=== PATIENT | female | born 1960 | race Caucasian/White ===

== ENCOUNTER 2018-07-28 01:44 | Inpatient (IN) | payer MEDICAID ==
[~2018-07-28] VITALS: Ht 165.1 cm; Wt 70.3 kg
[2018-07-28] MEDS ORDERED: LACTULOSE 20G/30ML UDC PO ONE (02:00)
[2018-07-28 02:34] LABS: BASOPHILS % 0.4 % (0.0-2.0); EOSINOPHILS % 2.7 % (0.0-5.0); HEMATOCRIT. 21.2 % (36.0-48.0); LYMPHOCYTES % 12.8 % (20.0-50.0); MEAN CORPUSCULAR HEMOGLOBIN 28.8 pg (28.0-32.0); MEAN CORPUSCULAR VOLUME 89.2 fL (81.0-99.0); MEAN PLATELET VOLUME 9.9 fl (7.4-10.4); MONOCYTES % 12.5 % (2.0-8.0); NEUTROPHILS % 71.6 % (40.0-76.0); PLATELET 134 x1000/uL (130-400); RED BLOOD CELL COUNT 2.38 mill/uL (4.2-5.4)
[2018-07-28 02:36] LABS: HEMOGLOBIN. 6.9 g/dL (12.0-16.0)
[2018-07-28 02:41] LABS: INR 1.5; PROTHROMBIN TIME 14.8 sec (9.1-11.1)
[2018-07-28] MEDS ORDERED: CEFTRIAXONE 1 G PREMIX 50 ML IV ONE (02:45)
[2018-07-28 03:11] LABS: CLARITY URINE TURBID (CLEAR); COLOR URINE YELLOW (YELLOW); KETONES URINE TRACE (NEGATIVE); LEUKOCYTE ESTERASE URINE 3+ (NEGATIVE); NITRITE URINE NEGATIVE (NEGATIVE); OCCULT BLOOD URINE 2+ (NEGATIVE); PH URINE 5.5 (4.5-8.0); PROTEIN URINE 2+ (NEGATIVE); SPECIFIC GRAVITY URINE 1.013 (1.005-1.030); UROBILINOGEN URINE 0.2 E.U./dL (0.2-1.0)
[2018-07-28 03:21] LABS: CHLORIDE 109 mEq/L (98-107); ETHANOL BLOOD 77 mg/dL
[2018-07-28 03:22] LABS: AMMONIA 166 uMol/L (<32)
[2018-07-28] MEDS: PANTOPRAZOLE SODIUM 40 MG/VIAL IV SCH ×2 (10:30→14:56)
[2018-07-28] MEDS ORDERED: OCTREOTIDE 1,000 MCG in SODIUM CHLORIDE 0.9% 98 ML IV PRN ×3 (12:45→16:00)
[2018-07-28 13:08] VITALS: BP 134/46
[2018-07-28 14:00] VITALS: BP 134/46
[2018-07-28] MEDS: LACTULOSE 20G/30ML UDC PO SCH ×2 (14:00→21:57)
[2018-07-28] MEDS: DEXT 5%/0.45% NACL 1000ML 1,000 ML IV SCH (14:46)
[2018-07-28] MEDS ORDERED: FOLIC ACID 1 MG, THIAMINE HCL 100 MG, MVI, ADULT NO.1 10 ML in DEXTROSE 5% WATER 1,000 ML IV SCH ×4 (15:00)
[2018-07-28 16:18] VITALS: BP 132/43
[2018-07-28 16:24] LABS: HEMATOCRIT 17.8 % (36.0-48.0)
[2018-07-28 16:34] VITALS: BP 125/38
[2018-07-28 18:44] LABS: HEPATITIS B SURFACE ANTIGEN NEGATIVE
[2018-07-28 19:12] LABS: HEPATITIS B CORE AB IGM NEGATIVE
[2018-07-28 19:14] LABS: HEPATITIS A AB IGM NEGATIVE (NEGATIVE)
[2018-07-28 20:00] VITALS: BP 125/42
[2018-07-28] MEDS: RIFAXIMIN 550 MG TABLET PO SCH (21:00)
[2018-07-28 22:00] VITALS: BP 110/42
[2018-07-28] MEDS: MORPHINE SULFATE 4 MG/ML CPJ (NOT FOR IM USE) IV PRN (22:17)
[2018-07-29] VITALS (20 sets, daily range): BP systolic 94–157; BP diastolic 45–98
[2018-07-29] MEDS ORDERED: CEFTRIAXONE 1 G PREMIX 50 ML IV SCH (05:00)
[2018-07-29 05:35] LABS: HEMATOCRIT. 26.2 % (36.0-48.0); HEMOGLOBIN. 8.9 g/dL (12.0-16.0); MEAN CORPUSCULAR HEMOGLOBIN 29.8 pg (28.0-32.0); MEAN CORPUSCULAR VOLUME 87.3 fL (81.0-99.0); MEAN PLATELET VOLUME 8.7 fl (7.4-10.4); PLATELET 105 x1000/uL (130-400); RED CELL DISTRIBUTION WIDTH 15.6 % (11.6-14.6)
[2018-07-29 05:44] LABS: INR 1.5; PARTIAL THROMBOPLASTIN TIME 33.8 sec (23.4-31.0); PROTHROMBIN TIME 15.2 sec (9.1-11.1)
[2018-07-29 05:57] LABS: PHOSPHORUS 3.7 mg/dL (2.5-4.9)
[2018-07-29 07:37] LABS: AMMONIA 58 uMol/L (<32)
[2018-07-29] MEDS ORDERED: MAGNESIUM SULFATE 2 GM in DEXTROSE 5% WATER 50 ML IV NR (09:00)
[2018-07-29] MEDS: RIFAXIMIN 550 MG TABLET PO SCH ×2 (09:00→21:37)
[2018-07-29] MEDS ORDERED: PROPOFOL 200MG/20ML VIAL IV ONE (09:34)
[2018-07-29] MEDS: PANTOPRAZOLE SODIUM 40 MG/VIAL IV SCH ×2 (09:43→21:19)
[2018-07-29] MEDS ORDERED: ONDANSETRON HCL 4MG/2ML INJ ONE (09:51)
[2018-07-29] MEDS ORDERED: LIDOCAINE HCL/PF 1% 10 MG/ML 5ML VIAL ONE (09:51)
[2018-07-29] MEDS ORDERED: VECURONIUM BROMIDE 10 MG/VIAL IV ONE (09:51)
[2018-07-29] MEDS ORDERED: CEFAZOLIN SODIUM 1000MG/VIAL ONE (09:51)
[2018-07-29] MEDS ORDERED: ESMOLOL HCL 10MG/ML 10ML VIAL IV ONE (09:52)
[2018-07-29 10:43] LABS: PLATELET ESTIMATE SLIGHTLY DECREASED
[2018-07-29] MEDS: MORPHINE SULFATE 4 MG/ML CPJ (NOT FOR IM USE) IV PRN ×3 (10:43→21:21)
[2018-07-29] MEDS: LACTULOSE 20G/30ML UDC PO SCH ×2 (13:53→21:37)
[2018-07-29] MEDS ORDERED: LIDOCAINE HCL 1% 20ML VIAL (Pyxis) INJ ONE (14:54)
[2018-07-29] MEDS ORDERED: SODIUM BICARBONATE 4% (2.4MEQ) 5ML VIAL IV ONE (14:55)
[2018-07-29] MEDS: FUROSEMIDE 40MG/4ML VIAL IVP SCH (14:57)
[2018-07-29] MEDS ORDERED: SORBITOL 70% SOLN 30ML PO SCH ×2 (16:00→20:00)
[2018-07-29 17:13] LABS: HEMATOCRIT 21.6 % (36.0-48.0); HEMOGLOBIN 7.3 g/dL (12.0-16.0)
[2018-07-30] VITALS (13 sets, daily range): BP systolic 101–153; BP diastolic 41–58
[2018-07-30] MEDS: DEXT 5%/0.45% NACL 1000ML 1,000 ML IV SCH (01:19)
[2018-07-30 04:51] LABS: AMMONIA 69 uMol/L (<32)
[2018-07-30] MEDS ORDERED: SORBITOL 70% SOLN 30ML PO SCH (05:00)
[2018-07-30] MEDS: LACTULOSE 20G/30ML UDC PO SCH ×3 (05:22→20:32)
[2018-07-30] MEDS: MORPHINE SULFATE 4 MG/ML CPJ (NOT FOR IM USE) IV PRN ×2 (05:31→20:51)
[2018-07-30 06:45] LABS: HEMATOCRIT. 27.7 % (36.0-48.0); HEMOGLOBIN. 9.5 g/dL (12.0-16.0); MEAN CORPUSCULAR HEMOGLOBIN 30.5 pg (28.0-32.0); MEAN CORPUSCULAR VOLUME 88.7 fL (81.0-99.0); MEAN PLATELET VOLUME 8.8 fl (7.4-10.4); PLATELET 102 x1000/uL (130-400); RED BLOOD CELL COUNT 3.12 mill/uL (4.2-5.4); RED CELL DISTRIBUTION WIDTH 15.5 % (11.6-14.6)
[2018-07-30 07:36] LABS: PLATELET ESTIMATE DECREASED
[2018-07-30] MEDS: RIFAXIMIN 550 MG TABLET PO SCH ×2 (08:27→20:32)
[2018-07-30] MEDS: CEFTRIAXONE 1 G PREMIX 50 ML IV SCH (08:27)
[2018-07-30] MEDS: PANTOPRAZOLE SODIUM 40 MG/VIAL IV SCH ×2 (08:27→21:42)
[2018-07-30] MEDS: FUROSEMIDE 40MG/4ML VIAL IVP SCH (08:27)
[2018-07-30] MEDS: FOLIC ACID 1 MG, THIAMINE HCL 100 MG, MVI, ADULT NO.1 10 ML in DEXTROSE 5% WATER 1,000 ML IV SCH ×4 (11:07)
[2018-07-30] MEDS ORDERED: SODIUM CHLORIDE 0.9% 10ML VIAL ONE (16:09)
[2018-07-30] MEDS ORDERED: SIMETHICONE 40 MG/0.6 ML 30ML ONE (16:10)
[2018-07-30] MEDS ORDERED: MIDAZOLAM HCL 5 MG/5 ML VIAL ONE (16:10)
[2018-07-30] MEDS ORDERED: FENTANYL CITRATE/PF 50MCG/ML 2ML VIAL ONE (16:11)
[2018-07-30] MEDS ORDERED: MIDAZOLAM HCL 5 MG/5 ML VIAL IV PRN (16:19)
[2018-07-30] MEDS ORDERED: FENTANYL CITRATE/PF 50MCG/ML 2ML VIAL IV PRN (16:20)
[2018-07-31] VITALS (12 sets, daily range): BP systolic 95–140; BP diastolic 32–86
[2018-07-31] MEDS: DEXT 5%/0.45% NACL 1000ML 1,000 ML IV SCH ×3 (00:14→21:03)
[2018-07-31] MEDS: MORPHINE SULFATE 4 MG/ML CPJ (NOT FOR IM USE) IV PRN ×3 (03:15→18:43)
[2018-07-31] MEDS: LACTULOSE 20G/30ML UDC PO SCH ×3 (05:31→21:02)
[2018-07-31 07:03] LABS: HEMATOCRIT. 23.8 % (36.0-48.0); HEMOGLOBIN. 8.3 g/dL (12.0-16.0); MEAN CORPUSCULAR HEMOGLOBIN 31.3 pg (28.0-32.0); MEAN CORPUSCULAR VOLUME 89.8 fL (81.0-99.0); MEAN PLATELET VOLUME 9.3 fl (7.4-10.4); PLATELET 73 x1000/uL (130-400); RED BLOOD CELL COUNT 2.64 mill/uL (4.2-5.4); RED CELL DISTRIBUTION WIDTH 15.4 % (11.6-14.6)
[2018-07-31 07:05] LABS: AMMONIA 97 uMol/L (<32)
[2018-07-31] MEDS: FUROSEMIDE 40MG/4ML VIAL IVP SCH (08:42)
[2018-07-31] MEDS: RIFAXIMIN 550 MG TABLET PO SCH ×2 (08:42→21:02)
[2018-07-31] MEDS: CEFTRIAXONE 1 G PREMIX 50 ML IV SCH (08:42)
[2018-07-31] MEDS: PANTOPRAZOLE SODIUM 40 MG/VIAL IV SCH ×2 (08:48→21:11)
[2018-07-31] MEDS: FOLIC ACID 1 MG, THIAMINE HCL 100 MG, MVI, ADULT NO.1 10 ML in DEXTROSE 5% WATER 1,000 ML IV SCH ×4 (09:49)
[2018-07-31 10:23] LABS: PLATELET ESTIMATE DECREASED
[2018-07-31] MEDS: CHLORDIAZEPOXIDE 25MG CAPSULE PO SCH ×2 (17:06→21:02)
[2018-08-01] VITALS (17 sets, daily range): BP systolic 106–143; BP diastolic 34–66
[2018-08-01] MEDS: LACTULOSE 20G/30ML UDC PO SCH ×3 (05:17→21:04)
[2018-08-01] MEDS: CHLORDIAZEPOXIDE 25MG CAPSULE PO SCH ×3 (05:17→21:04)
[2018-08-01] MEDS: MORPHINE SULFATE 4 MG/ML CPJ (NOT FOR IM USE) IV PRN ×3 (06:32→20:38)
[2018-08-01 07:13] LABS: HEMOGLOBIN. 8.4 g/dL (12.0-16.0); MEAN CORPUSCULAR HEMOGLOBIN 30.4 pg (28.0-32.0); MEAN CORPUSCULAR VOLUME 90.8 fL (81.0-99.0); MEAN PLATELET VOLUME 9.2 fl (7.4-10.4); PLATELET 70 x1000/uL (130-400); RED BLOOD CELL COUNT 2.76 mill/uL (4.2-5.4); RED CELL DISTRIBUTION WIDTH 15.4 % (11.6-14.6)
[2018-08-01 07:38] LABS: AMMONIA 57 uMol/L (<32)
[2018-08-01] MEDS: FUROSEMIDE 40MG/4ML VIAL IVP SCH (08:55)
[2018-08-01] MEDS: CEFTRIAXONE 1 G PREMIX 50 ML IV SCH (08:55)
[2018-08-01] MEDS: RIFAXIMIN 550 MG TABLET PO SCH ×2 (08:56→20:36)
[2018-08-01] MEDS: PANTOPRAZOLE SODIUM 40 MG/VIAL IV SCH ×2 (09:48→20:36)
[2018-08-01] MEDS: FOLIC ACID 1 MG, THIAMINE HCL 100 MG, MVI, ADULT NO.1 10 ML in DEXTROSE 5% WATER 1,000 ML IV SCH ×4 (09:48)
[2018-08-01 11:06] LABS: PLATELET ESTIMATE DECREASED
[2018-08-01] MEDS ORDERED: FUROSEMIDE 40MG TABLET PO SCH (12:00)
[2018-08-01 13:46] LABS: INR 1.8; PROTHROMBIN TIME 17.8 sec (9.1-11.1)
[2018-08-01] MEDS: SPIRONOLACTONE 50MG TABLET PO SCH (17:03)
[2018-08-01] MEDS ORDERED: ACETAMINOPHEN 325MG TABLET PO PRN (22:45)
[2018-08-02] VITALS (10 sets, daily range): BP systolic 93–115; BP diastolic 31–47
[2018-08-02] MEDS: CHLORDIAZEPOXIDE 25MG CAPSULE PO SCH ×2 (05:44→14:12)
[2018-08-02] MEDS: LACTULOSE 20G/30ML UDC PO SCH ×2 (05:44→14:12)
[2018-08-02] MEDS: MORPHINE SULFATE 4 MG/ML CPJ (NOT FOR IM USE) IV PRN (05:45)
[2018-08-02 06:33] LABS: HEMATOCRIT. 27.5 % (36.0-48.0); HEMOGLOBIN. 9.3 g/dL (12.0-16.0); MEAN CORPUSCULAR HEMOGLOBIN 31.1 pg (28.0-32.0); MEAN CORPUSCULAR VOLUME 91.7 fL (81.0-99.0); MEAN PLATELET VOLUME 9.2 fl (7.4-10.4); PLATELET 78 x1000/uL (130-400); RED BLOOD CELL COUNT 2.99 mill/uL (4.2-5.4); RED CELL DISTRIBUTION WIDTH 15.9 % (11.6-14.6)
[2018-08-02] MEDS: PANTOPRAZOLE SODIUM 40 MG/VIAL IV SCH (08:21)
[2018-08-02] MEDS: FOLIC ACID 1 MG, THIAMINE HCL 100 MG, MVI, ADULT NO.1 10 ML in DEXTROSE 5% WATER 1,000 ML IV SCH ×4 (08:21)
[2018-08-02] MEDS: CEFTRIAXONE 1 G PREMIX 50 ML IV SCH (08:21)
[2018-08-02] MEDS: RIFAXIMIN 550 MG TABLET PO SCH (08:22)
[2018-08-02] MEDS: SPIRONOLACTONE 50MG TABLET PO SCH (08:22)
[2018-08-02] MEDS: FUROSEMIDE 40MG/4ML VIAL IVP SCH (08:22)
[2018-08-03 08:11] LABS: PLATELET ESTIMATE DECREASED
== END 2018-08-02 17:49 | disposition home or self-care (01) | DRG 720 ==
LOC: EDBD 01:44 → ER 01:44 → 5EST 02:44 → EDBEDREQTM 02:46 → EDBEDREQ 02:46 → ENRESERV 11:09 → CANRESERV 11:09 → EDBEDREQSVC 12:15 → ENRESERV 12:30
PROVIDERS: ADMIT Internal Medicine; ATTEND Internal Medicine
PROC: 30233N1 Transfusion of Nonautologous Red Blood Cells into Peripheral Vein, Percutaneous Approach (ICD-10-PCS; 2018-07-28)
PROC: 05HY33Z Insertion of Infusion Device into Upper Vein, Percutaneous Approach (ICD-10-PCS; 2018-07-29)
PROC: B54MZZZ Ultrasonography of Right Upper Extremity Veins (ICD-10-PCS; 2018-07-29)
PROC: 30233L1 Transfusion of Nonautologous Fresh Plasma into Peripheral Vein, Percutaneous Approach (ICD-10-PCS; 2018-07-29)
PROC: 30233K1 Transfusion of Nonautologous Frozen Plasma into Peripheral Vein, Percutaneous Approach (ICD-10-PCS; 2018-07-29)
PROC: BW40ZZZ Ultrasonography of Abdomen (ICD-10-PCS; 2018-07-30)
PROC: 0DB68ZX Excision of Stomach, Via Natural or Artificial Opening Endoscopic, Diagnostic (ICD-10-PCS; 2018-07-30)
PROC: 0DJD8ZZ Inspection of Lower Intestinal Tract, Via Natural or Artificial Opening Endoscopic (ICD-10-PCS; 2018-07-30)
PROC: 0W9G3ZZ Drainage of Peritoneal Cavity, Percutaneous Approach (ICD-10-PCS; principal; 2018-07-30 15:00)
DX: A41.9 Sepsis, unspecified organism (principal); G93.41 Metabolic encephalopathy; E43 Unspecified severe protein-calorie malnutrition; K85.90 Acute pancreatitis without necrosis or infection, unspecified; L89.152 Pressure ulcer of sacral region, stage 2; N17.9 Acute kidney failure, unspecified; D68.9 Coagulation defect, unspecified; E87.8 Other disorders of electrolyte and fluid balance, not elsewhere classified; K70.31 Alcoholic cirrhosis of liver with ascites; B18.2 Chronic viral hepatitis C; D50.0 Iron deficiency anemia secondary to blood loss (chronic); F10.10 Alcohol abuse, uncomplicated; F12.90 Cannabis use, unspecified, uncomplicated; B96.1 Klebsiella pneumoniae [K. pneumoniae] as the cause of diseases classified elsewhere; I50.9 Heart failure, unspecified; K52.9 Noninfective gastroenteritis and colitis, unspecified; K64.8 Other hemorrhoids; N13.6 Pyonephrosis; W19.XXXA Unspecified fall, initial encounter; Y93.89 Activity, other specified; Z68.25 Body mass index [BMI] 25.0-25.9, adult; Y92.098 Other place in other non-institutional residence as the place of occurrence of the external cause; Y99.8 Other external cause status; Z86.73 Personal history of transient ischemic attack (TIA), and cerebral infarction without residual deficits; Z87.11 Personal history of peptic ulcer disease; N39.0 Urinary tract infection, site not specified
CPT/HCPCS: 36415; 36430; 36569; 49083; 71045; 74176; 76700; 76937; 78278; 80048; 80076; 82140; 82150; 83036; 83605; 83735; 84100; 84134; 85014; 85018; 86705; 86709; 86803; 86850; 86900; 86920; 86927; 87077; 87186; 87340; 88108; 88305; 88312; 88313; 93005; 93970; 96365; 96366; 96367; 97162; 97530; 99152; 99291; A4216; A6261; A9560; C1725; C1769; C1893; C9113; G0482; J0690; J0696; J1940; J2250; J2270; J2354; J2405; J2704; J3010; J3411; J3475; J3490; J7040; J7050; J7060; J7070; P9016; P9017; A4315

== ENCOUNTER 2018-08-21 18:04 | Inpatient (IN) | payer MEDICAID ==
[~2018-08-21] VITALS: Ht 160 cm; Wt 80.9 kg
[2018-08-21] MEDS ORDERED: KETOROLAC 15MG/ML VIAL IV ONE (18:15)
[2018-08-21] MEDS ORDERED: SODIUM CHLORIDE 0.9% 1000ML BAG (SEPSIS BOLUS) IV ONE (18:15)
[2018-08-21] MEDS ORDERED: ACETAMINOPHEN 325MG TABLET PO ONE (18:15)
[2018-08-21 20:01] LABS: CLARITY URINE CLOUDY (CLEAR); COLOR URINE DARK YELLOW (YELLOW); KETONES URINE TRACE (NEGATIVE); LEUKOCYTE ESTERASE URINE 2+ (NEGATIVE); NITRITE URINE NEGATIVE (NEGATIVE); OCCULT BLOOD URINE 3+ (NEGATIVE); PH URINE 5.5 (4.5-8.0); PROTEIN URINE 1+ (NEGATIVE)
[2018-08-21 21:04] LABS: BASOPHILS % 0.6 % (0.0-2.0); EOSINOPHILS % 1.4 % (0.0-5.0); HEMATOCRIT. 24.9 % (36.0-48.0); HEMOGLOBIN. 8.2 g/dL (12.0-16.0); LYMPHOCYTES % 12.4 % (20.0-50.0); MEAN CORPUSCULAR HEMOGLOBIN 30.9 pg (28.0-32.0); MEAN PLATELET VOLUME 10.1 fl (7.4-10.4); MONOCYTES % 11.6 % (2.0-8.0); PLATELET 97 x1000/uL (130-400); RED BLOOD CELL COUNT 2.65 mill/uL (4.2-5.4); RED CELL DISTRIBUTION WIDTH 19.2 % (11.6-14.6)
[2018-08-21 21:09] LABS: INR 1.6; PROTHROMBIN TIME 15.9 sec (9.1-11.1)
[2018-08-21] MEDS ORDERED: VANCOMYCIN 1 G PREMIX 200 ML IV STA (21:09)
[2018-08-21 21:11] LABS: CHLORIDE 112 mEq/L (98-107)
[2018-08-21] MEDS ORDERED: ACETAMINOPHEN 650MG SUPP PR ONE (22:15)
[2018-08-21] MEDS ORDERED: FLUCONAZOLE 100MG TABLET PO ONE (22:30)
[2018-08-21] MEDS ORDERED: LACTULOSE 20G/30ML UDC PO ONE (22:30)
[2018-08-22] VITALS (7 sets, daily range): BP systolic 108–143; BP diastolic 29–66
[2018-08-22] MEDS ORDERED: ASPIRIN 300MG SUPP PR SCH (01:39)
[2018-08-22] MEDS ORDERED: CEFEPIME 1,000 MG in DEXTROSE 5% WATER 50 ML IV SCH (02:00)
[2018-08-22] MEDS ORDERED: METRONIDAZOLE 500 MG PREMIX 100 ML IV SCH (03:00)
[2018-08-22] MEDS: OMEPRAZOLE 20MG CAPSULE EXTENDED RELEASE PO SCH (07:18)
[2018-08-22] MEDS: LACTULOSE 20G/30ML UDC PO SCH ×3 (09:08→18:24)
[2018-08-22] MEDS: SPIRONOLACTONE 50MG TABLET PO SCH (09:09)
[2018-08-22] MEDS: FUROSEMIDE 40MG/4ML VIAL IVP SCH ×2 (09:09→20:54)
[2018-08-22] MEDS: CEFTRIAXONE 1 G PREMIX 50 ML IV SCH (09:59)
[2018-08-22] MEDS: RIFAXIMIN 550 MG TABLET PO SCH ×2 (13:20→20:54)
[2018-08-22] MEDS: MORPHINE SULFATE 4 MG/ML CPJ (NOT FOR IM USE) IV PRN ×2 (13:21→23:38)
[2018-08-23] VITALS (7 sets, daily range): BP systolic 117–146; BP diastolic 38–49
[2018-08-23] MEDS: OMEPRAZOLE 20MG CAPSULE EXTENDED RELEASE PO SCH (06:23)
[2018-08-23] MEDS: CEFTRIAXONE 1 G PREMIX 50 ML IV SCH (06:24)
[2018-08-23 06:58] LABS: BASOPHILS % 0.9 % (0.0-2.0); EOSINOPHILS % 2.4 % (0.0-5.0); HEMATOCRIT. 22.6 % (36.0-48.0); HEMOGLOBIN. 7.6 g/dL (12.0-16.0); LYMPHOCYTES % 11.4 % (20.0-50.0); MEAN CORPUSCULAR HEMOGLOBIN 30.3 pg (28.0-32.0); MEAN CORPUSCULAR VOLUME 90.2 fL (81.0-99.0); MEAN PLATELET VOLUME 9.5 fl (7.4-10.4); MONOCYTES % 10.2 % (2.0-8.0); NEUTROPHILS % 75.1 % (40.0-76.0); PLATELET 84 x1000/uL (130-400); RED BLOOD CELL COUNT 2.51 mill/uL (4.2-5.4); RED CELL DISTRIBUTION WIDTH 18.3 % (11.6-14.6)
[2018-08-23] MEDS: RIFAXIMIN 550 MG TABLET PO SCH ×2 (09:17→20:11)
[2018-08-23] MEDS: FUROSEMIDE 40MG/4ML VIAL IVP SCH ×2 (09:17→20:11)
[2018-08-23] MEDS: SPIRONOLACTONE 50MG TABLET PO SCH (09:17)
[2018-08-23] MEDS: LACTULOSE 20G/30ML UDC PO SCH ×3 (09:17→17:31)
[2018-08-23 10:26] LABS: *AMPHETAMINES SCREEN URINE NEGATIVE (NEGATIVE); *BARBITURATES SCREEN URINE NEGATIVE (NEGATIVE); *BENZODIAZEPINES SCREEN URINE PRESUMTIVE POSITIVE (NEGATIVE); *COCAINE SCREEN URINE NEGATIVE (NEGATIVE); CANNABINOID URINE SCREEN NEGATIVE (NEGATIVE); METHADONE URINE SCREEN NEGATIVE (NEGATIVE); OPIATES URINE SCREEN PRESUMTIVE POSITIVE (NEGATIVE); PHENCYCLIDINE URINE SCREEN NEGATIVE (NEGATIVE)
[2018-08-23] MEDS: MORPHINE SULFATE 4 MG/ML CPJ (NOT FOR IM USE) IV PRN ×2 (12:11→20:12)
[2018-08-24] VITALS (7 sets, daily range): BP systolic 121–149; BP diastolic 31–69
[2018-08-24] MEDS: MORPHINE SULFATE 4 MG/ML CPJ (NOT FOR IM USE) IV PRN ×4 (03:24→22:50)
[2018-08-24] MEDS: CEFTRIAXONE 1 G PREMIX 50 ML IV SCH (06:34)
[2018-08-24] MEDS: OMEPRAZOLE 20MG CAPSULE EXTENDED RELEASE PO SCH (06:34)
[2018-08-24] MEDS: RIFAXIMIN 550 MG TABLET PO SCH ×2 (09:20→20:23)
[2018-08-24] MEDS: FUROSEMIDE 40MG/4ML VIAL IVP SCH (09:20)
[2018-08-24] MEDS: LACTULOSE 20G/30ML UDC PO SCH ×3 (09:20→17:09)
[2018-08-24] MEDS: SPIRONOLACTONE 50MG TABLET PO SCH (09:20)
[2018-08-24 12:01] LABS: BASOPHILS % 0.6 % (0.0-2.0); EOSINOPHILS % 3.2 % (0.0-5.0); LYMPHOCYTES % 17.9 % (20.0-50.0); MEAN CORPUSCULAR HEMOGLOBIN 30.5 pg (28.0-32.0); MEAN CORPUSCULAR VOLUME 92.2 fL (81.0-99.0); MEAN PLATELET VOLUME 10.5 fl (7.4-10.4); MONOCYTES % 14.1 % (2.0-8.0); NEUTROPHILS % 64.2 % (40.0-76.0); PLATELET 64 x1000/uL (130-400); RED BLOOD CELL COUNT 2.21 mill/uL (4.2-5.4); RED CELL DISTRIBUTION WIDTH 18.2 % (11.6-14.6)
[2018-08-24 12:20] LABS: HEMATOCRIT. 20.4 % (36.0-48.0); HEMOGLOBIN. 6.7 g/dL (12.0-16.0)
[2018-08-24 12:39] LABS: FERRITIN 92 ng/mL (10-291); VITAMIN B12 SERUM 861 pg/mL (211-911)
[2018-08-24 12:41] LABS: FOLIC ACID (FOLATE) SERUM > 20.00 ng/mL (>5.38)
[2018-08-24] MEDS: MEROPENEM 1,000 MG in SODIUM CHLORIDE 0.9% 100 ML IV SCH ×2 (15:22→23:37)
[2018-08-24] MEDS: ACETAMINOPHEN 325MG TABLET PO PRN (23:37)
[2018-08-25] VITALS (9 sets, daily range): BP systolic 112–148; BP diastolic 29–45
[2018-08-25] MEDS: OMEPRAZOLE 20MG CAPSULE EXTENDED RELEASE PO SCH (06:33)
[2018-08-25] MEDS: MEROPENEM 1,000 MG in SODIUM CHLORIDE 0.9% 100 ML IV SCH ×2 (08:35→21:16)
[2018-08-25] MEDS: LACTULOSE 20G/30ML UDC PO SCH ×2 (08:35→17:35)
[2018-08-25] MEDS: RIFAXIMIN 550 MG TABLET PO SCH ×2 (08:36→21:17)
[2018-08-25] MEDS: SPIRONOLACTONE 50MG TABLET PO SCH (08:36)
[2018-08-25] MEDS ORDERED: FUROSEMIDE 40MG TABLET PO SCH (09:00)
[2018-08-25 09:22] LABS: HEMATOCRIT. 24.1 % (36.0-48.0); HEMOGLOBIN. 8.1 g/dL (12.0-16.0); MEAN CORPUSCULAR HEMOGLOBIN 30.7 pg (28.0-32.0); MEAN CORPUSCULAR VOLUME 91.3 fL (81.0-99.0); MEAN PLATELET VOLUME 10.7 fl (7.4-10.4); PLATELET 61 x1000/uL (130-400); RED BLOOD CELL COUNT 2.63 mill/uL (4.2-5.4); RED CELL DISTRIBUTION WIDTH 17.5 % (11.6-14.6)
[2018-08-25 09:32] LABS: INR 1.7; PROTHROMBIN TIME 17.4 sec (9.1-11.1)
[2018-08-25] MEDS: MORPHINE SULFATE 4 MG/ML CPJ (NOT FOR IM USE) IV PRN ×2 (10:46→21:18)
[2018-08-25 13:57] LABS: PLATELET ESTIMATE DECREASED
[2018-08-26] VITALS: BP 142/40
[2018-08-26 04:00] VITALS: BP 158/54
[2018-08-26] MEDS: OMEPRAZOLE 20MG CAPSULE EXTENDED RELEASE PO SCH (06:59)
[2018-08-26 07:45] LABS: HEMATOCRIT. 23.9 % (36.0-48.0); HEMOGLOBIN. 8.2 g/dL (12.0-16.0); MEAN CORPUSCULAR HEMOGLOBIN 31.1 pg (28.0-32.0); MEAN CORPUSCULAR VOLUME 90.3 fL (81.0-99.0); MEAN PLATELET VOLUME 10.8 fl (7.4-10.4); PLATELET 62 x1000/uL (130-400); RED BLOOD CELL COUNT 2.64 mill/uL (4.2-5.4)
[2018-08-26] MEDS: MEROPENEM 1,000 MG in SODIUM CHLORIDE 0.9% 100 ML IV SCH ×2 (08:24→20:03)
[2018-08-26] MEDS: RIFAXIMIN 550 MG TABLET PO SCH ×2 (08:24→20:03)
[2018-08-26] MEDS: LACTULOSE 20G/30ML UDC PO SCH ×3 (08:24→17:18)
[2018-08-26 11:30] LABS: PLATELET ESTIMATE MARKEDLY DECREASED
[2018-08-26 12:00] VITALS: BP 134/39
[2018-08-26] MEDS: MORPHINE SULFATE 4 MG/ML CPJ (NOT FOR IM USE) IV PRN ×2 (14:09→23:56)
[2018-08-26] MEDS: FERROUS SULFATE 325MG TABLET PO SCH ×2 (14:09→17:18)
[2018-08-26 16:00] VITALS: BP 167/35
[2018-08-26 20:00] VITALS: BP 153/39
[2018-08-26] MEDS: ACETAMINOPHEN 325MG TABLET PO PRN (20:03)
[2018-08-27] VITALS: BP 114/33
[2018-08-27 04:00] VITALS: BP 130/36
[2018-08-27] MEDS: OMEPRAZOLE 20MG CAPSULE EXTENDED RELEASE PO SCH (06:35)
[2018-08-27 08:00] VITALS: BP 140/36
[2018-08-27] MEDS: RIFAXIMIN 550 MG TABLET PO SCH ×2 (09:48→20:39)
[2018-08-27] MEDS: FERROUS SULFATE 325MG TABLET PO SCH ×3 (09:48→18:43)
[2018-08-27] MEDS: LACTULOSE 20G/30ML UDC PO SCH ×3 (09:48→18:44)
[2018-08-27] MEDS: MEROPENEM 1,000 MG in SODIUM CHLORIDE 0.9% 100 ML IV SCH ×2 (09:48→20:39)
[2018-08-27 10:44] LABS: HEMATOCRIT 24.2 % (36.0-48.0); HEMOGLOBIN 8.2 g/dL (12.0-16.0); MEAN CORPUSCULAR HEMOGLOBIN 31.1 pg (28.0-32.0); MEAN CORPUSCULAR VOLUME 91.6 fL (81.0-99.0); PLATELET 64 x1000/uL (130-400); RED BLOOD CELL COUNT 2.65 mill/uL (4.2-5.4); RED CELL DISTRIBUTION WIDTH 18.2 % (11.6-14.6)
[2018-08-27 12:00] VITALS: BP 129/39
[2018-08-27 16:00] VITALS: BP 146/33
[2018-08-27 20:00] VITALS: BP 160/36
[2018-08-28] VITALS: BP 129/39
[2018-08-28 04:00] VITALS: BP 128/28
[2018-08-28] MEDS: OMEPRAZOLE 20MG CAPSULE EXTENDED RELEASE PO SCH (06:20)
[2018-08-28 08:00] VITALS: BP 113/25
[2018-08-28] MEDS: LACTULOSE 20G/30ML UDC PO SCH ×3 (09:00→18:42)
[2018-08-28] MEDS: RIFAXIMIN 550 MG TABLET PO SCH ×2 (09:22→20:24)
[2018-08-28] MEDS: FERROUS SULFATE 325MG TABLET PO SCH ×3 (09:22→18:42)
[2018-08-28] MEDS: MEROPENEM 1,000 MG in SODIUM CHLORIDE 0.9% 100 ML IV SCH ×2 (09:54→20:25)
[2018-08-28 16:00] VITALS: BP 114/33
[2018-08-28 20:00] VITALS: BP 148/40
[2018-08-28] MEDS: ACETAMINOPHEN 325MG TABLET PO PRN (20:26)
[2018-08-28 21:44] LABS: HEMATOCRIT. 28.9 % (36.0-48.0); HEMOGLOBIN. 9.7 g/dL (12.0-16.0); MEAN CORPUSCULAR HEMOGLOBIN 32.7 pg (28.0-32.0); MEAN CORPUSCULAR VOLUME 97.5 fL (81.0-99.0); PLATELET 74 x1000/uL (130-400); RED BLOOD CELL COUNT 2.96 mill/uL (4.2-5.4); RED CELL DISTRIBUTION WIDTH 19.6 % (11.6-14.6)
[2018-08-28 22:40] LABS: PLATELET ESTIMATE DECREASED
[2018-08-29 04:00] VITALS: BP 110/30
[2018-08-29] MEDS: OMEPRAZOLE 20MG CAPSULE EXTENDED RELEASE PO SCH (06:34)
[2018-08-29] MEDS: FERROUS SULFATE 325MG TABLET PO SCH ×3 (07:50→18:12)
[2018-08-29 08:00] VITALS: BP 117/26
[2018-08-29] MEDS: LACTULOSE 20G/30ML UDC PO SCH ×3 (09:05→17:10)
[2018-08-29] MEDS: RIFAXIMIN 550 MG TABLET PO SCH ×2 (09:05→20:47)
[2018-08-29] MEDS: MEROPENEM 1,000 MG in SODIUM CHLORIDE 0.9% 100 ML IV SCH ×2 (09:06→20:48)
[2018-08-29 09:50] LABS: HEMATOCRIT. 23.3 % (36.0-48.0); HEMOGLOBIN. 7.8 g/dL (12.0-16.0); MEAN CORPUSCULAR HEMOGLOBIN 30.9 pg (28.0-32.0); MEAN CORPUSCULAR VOLUME 92.9 fL (81.0-99.0); MEAN PLATELET VOLUME 11.7 fl (7.4-10.4); PLATELET 70 x1000/uL (130-400); RED BLOOD CELL COUNT 2.51 mill/uL (4.2-5.4); RED CELL DISTRIBUTION WIDTH 19.4 % (11.6-14.6)
[2018-08-29 12:00] VITALS: BP 143/29
[2018-08-29 14:01] LABS: PLATELET ESTIMATE DECREASED
[2018-08-29] MEDS: ACETAMINOPHEN 325MG TABLET PO PRN (14:55)
[2018-08-29 16:00] VITALS: BP 136/27
[2018-08-29 20:00] VITALS: BP 138/35
[2018-08-30] VITALS: BP 105/60
[2018-08-30 04:00] VITALS: BP 129/32
[2018-08-30] MEDS: OMEPRAZOLE 20MG CAPSULE EXTENDED RELEASE PO SCH (06:42)
[2018-08-30 09:00] VITALS: BP 114/50
[2018-08-30] MEDS: LACTULOSE 20G/30ML UDC PO SCH ×3 (09:00→17:16)
[2018-08-30] MEDS: FERROUS SULFATE 325MG TABLET PO SCH ×3 (09:38→17:16)
[2018-08-30] MEDS: RIFAXIMIN 550 MG TABLET PO SCH ×2 (09:39→20:57)
[2018-08-30] MEDS: MEROPENEM 1,000 MG in SODIUM CHLORIDE 0.9% 100 ML IV SCH ×2 (09:39→20:57)
[2018-08-30 11:37] VITALS: BP 111/27
[2018-08-30 16:00] VITALS: BP 138/33
[2018-08-30 20:23] VITALS: BP 125/34
[2018-08-31 00:23] VITALS: BP 136/33
[2018-08-31 04:00] VITALS: BP 128/36
[2018-08-31] MEDS: OMEPRAZOLE 20MG CAPSULE EXTENDED RELEASE PO SCH (06:50)
[2018-08-31 07:22] LABS: BASOPHILS % 0.5 % (0.0-2.0); EOSINOPHILS % 2.8 % (0.0-5.0); HEMATOCRIT. 28.1 % (36.0-48.0); HEMOGLOBIN. 9.3 g/dL (12.0-16.0); LYMPHOCYTES % 25.2 % (20.0-50.0); MEAN CORPUSCULAR HEMOGLOBIN 30.7 pg (28.0-32.0); MEAN PLATELET VOLUME 10.3 fl (7.4-10.4); MONOCYTES % 12.8 % (2.0-8.0); NEUTROPHILS % 58.7 % (40.0-76.0); PLATELET 90 x1000/uL (130-400); RED BLOOD CELL COUNT 3.02 mill/uL (4.2-5.4); RED CELL DISTRIBUTION WIDTH 19.6 % (11.6-14.6)
[2018-08-31 08:00] VITALS: BP 105/42
[2018-08-31] MEDS ORDERED: SODIUM POLYSTYRENE SULFONATE 15 G/60 ML BOT PO SCH (09:00)
[2018-08-31] MEDS: ACETAMINOPHEN 325MG TABLET PO PRN (09:20)
[2018-08-31] MEDS: MEROPENEM 1,000 MG in SODIUM CHLORIDE 0.9% 100 ML IV SCH (09:20)
[2018-08-31] MEDS: FERROUS SULFATE 325MG TABLET PO SCH ×3 (09:20→17:25)
[2018-08-31] MEDS: LACTULOSE 20G/30ML UDC PO SCH ×3 (09:21→17:25)
[2018-08-31] MEDS: RIFAXIMIN 550 MG TABLET PO SCH ×2 (09:21→21:13)
[2018-08-31 12:00] VITALS: BP 131/37
[2018-08-31 15:20] LABS: CLARITY URINE CLOUDY (CLEAR); COLOR URINE ORANGE (YELLOW); KETONES URINE TRACE (NEGATIVE); LEUKOCYTE ESTERASE URINE 2+ (NEGATIVE); NITRITE URINE NEGATIVE (NEGATIVE); OCCULT BLOOD URINE 3+ (NEGATIVE); PROTEIN URINE 2+ (NEGATIVE); SPECIFIC GRAVITY URINE 1.018 (1.005-1.030)
[2018-08-31 16:00] VITALS: BP 133/33
[2018-08-31 20:19] VITALS: BP 131/36
[2018-09-01] VITALS (12 sets, daily range): BP systolic 113–172; BP diastolic 27–45
[2018-09-01] MEDS: OMEPRAZOLE 20MG CAPSULE EXTENDED RELEASE PO SCH (06:34)
[2018-09-01] MEDS: FERROUS SULFATE 325MG TABLET PO SCH ×3 (07:50→17:32)
[2018-09-01] MEDS: RIFAXIMIN 550 MG TABLET PO SCH ×2 (08:16→21:10)
[2018-09-01] MEDS: LACTULOSE 20G/30ML UDC PO SCH ×3 (08:16→17:00)
[2018-09-01 10:46] LABS: BASOPHILS % 0.6 % (0.0-2.0); EOSINOPHILS % 2.6 % (0.0-5.0); HEMATOCRIT. 25.4 % (36.0-48.0); HEMOGLOBIN. 8.4 g/dL (12.0-16.0); LYMPHOCYTES % 19.9 % (20.0-50.0); MEAN CORPUSCULAR HEMOGLOBIN 31.3 pg (28.0-32.0); MEAN CORPUSCULAR VOLUME 95.2 fL (81.0-99.0); MEAN PLATELET VOLUME 10.1 fl (7.4-10.4); MONOCYTES % 11.9 % (2.0-8.0); PLATELET 75 x1000/uL (130-400); RED BLOOD CELL COUNT 2.67 mill/uL (4.2-5.4); RED CELL DISTRIBUTION WIDTH 19.7 % (11.6-14.6)
[2018-09-01 10:50] LABS: INR 1.6; PROTHROMBIN TIME 16.1 sec (9.1-11.1)
[2018-09-01] MEDS ORDERED: LIDOCAINE HCL 1% 20ML VIAL (Pyxis) INJ ONE (11:13)
[2018-09-01] MEDS ORDERED: IOHEXOL-300 50 ML BOTTLE IV ONE (11:13)
[2018-09-01] MEDS ORDERED: SODIUM BICARBONATE 4% (2.4MEQ) 5ML VIAL IV ONE (11:13)
[2018-09-01] MEDS ORDERED: FENTANYL CITRATE/PF 50MCG/ML 2ML VIAL IV ONE (11:25)
[2018-09-01] MEDS ORDERED: FENTANYL CITRATE/PF 50MCG/ML 2ML VIAL ONE (11:36)
[2018-09-01] MEDS ORDERED: SODIUM POLYSTYRENE SULFONATE 15 G/60 ML BOT PO SCH (16:00)
[2018-09-01] MEDS: ACETAMINOPHEN 325MG TABLET PO PRN (17:41)
[2018-09-01] MEDS: NYSTATIN POWDER 15GM TOP SCH (21:10)
[2018-09-02] VITALS: BP 149/36
[2018-09-02 04:07] VITALS: BP 124/57
[2018-09-02] MEDS: OMEPRAZOLE 20MG CAPSULE EXTENDED RELEASE PO SCH (06:22)
[2018-09-02 08:00] VITALS: BP 131/73
[2018-09-02] MEDS ORDERED: LIDOCAINE HCL 1% 20ML VIAL (Pyxis) INJ ONE (08:26)
[2018-09-02 08:27] LABS: HEMATOCRIT. 24.8 % (36.0-48.0); HEMOGLOBIN. 8.3 g/dL (12.0-16.0); MEAN CORPUSCULAR HEMOGLOBIN 31.2 pg (28.0-32.0); MEAN CORPUSCULAR VOLUME 93.3 fL (81.0-99.0); PLATELET 85 x1000/uL (130-400); RED BLOOD CELL COUNT 2.66 mill/uL (4.2-5.4); RED CELL DISTRIBUTION WIDTH 19.6 % (11.6-14.6)
[2018-09-02] MEDS ORDERED: SODIUM POLYSTYRENE SULFONATE 15 G/60 ML BOT PO SCH (10:00)
[2018-09-02] MEDS: FERROUS SULFATE 325MG TABLET PO SCH ×3 (10:11→19:25)
[2018-09-02] MEDS: NYSTATIN POWDER 15GM TOP SCH ×2 (10:11→16:44)
[2018-09-02] MEDS: LACTULOSE 20G/30ML UDC PO SCH ×3 (10:11→19:26)
[2018-09-02] MEDS: RIFAXIMIN 550 MG TABLET PO SCH (10:11)
[2018-09-02 12:30] VITALS: BP 130/33
[2018-09-02 12:49] VITALS: BP 118/52
[2018-09-02] MEDS: ACETAMINOPHEN 325MG TABLET PO PRN (15:38)
[2018-09-02 16:55] VITALS: BP 122/45
[2018-09-02] MEDS ORDERED: MEROPENEM 500 MG in SODIUM CHLORIDE 0.9% 50 ML IV SCH (17:00)
[2018-09-02 17:24] LABS: PLATELET ESTIMATE DECREASED
== END 2018-09-02 20:00 | DRG 720 ==
LOC: ER 18:04 → 6WST 22:25 → EDBEDREQ 22:41 → EDBEDREQSVC 22:41 → CANBEDREQ 08-22 00:54 → ENRESERV 08-22 03:35
PROVIDERS: ADMIT Internal Medicine; ATTEND Internal Medicine
PROC: 30233N1 Transfusion of Nonautologous Red Blood Cells into Peripheral Vein, Percutaneous Approach (ICD-10-PCS; 2018-08-25)
PROC: 0T9030Z Drainage of Right Kidney with Drainage Device, Percutaneous Approach (ICD-10-PCS; principal; 2018-09-01)
PROC: 02HV33Z Insertion of Infusion Device into Superior Vena Cava, Percutaneous Approach (ICD-10-PCS; 2018-09-02)
PROC: B548ZZA Ultrasonography of Superior Vena Cava, Guidance (ICD-10-PCS; 2018-09-02)
PROC: B5181ZA Fluoroscopy of Superior Vena Cava using Low Osmolar Contrast, Guidance (ICD-10-PCS; 2018-09-02)
DX: A41.9 Sepsis, unspecified organism (principal); E43 Unspecified severe protein-calorie malnutrition; G93.41 Metabolic encephalopathy; D68.9 Coagulation defect, unspecified; E87.8 Other disorders of electrolyte and fluid balance, not elsewhere classified; E72.20 Disorder of urea cycle metabolism, unspecified; C55 Malignant neoplasm of uterus, part unspecified; D64.9 Anemia, unspecified; B18.2 Chronic viral hepatitis C; K70.31 Alcoholic cirrhosis of liver with ascites; F10.10 Alcohol abuse, uncomplicated; N18.9 Chronic kidney disease, unspecified; I11.9 Hypertensive heart disease without heart failure; J45.909 Unspecified asthma, uncomplicated; K72.90 Hepatic failure, unspecified without coma; N13.6 Pyonephrosis; W18.39XA Other fall on same level, initial encounter; Z85.42 Personal history of malignant neoplasm of other parts of uterus; Z86.73 Personal history of transient ischemic attack (TIA), and cerebral infarction without residual deficits; Z87.11 Personal history of peptic ulcer disease; Y93.89 Activity, other specified; Y92.098 Other place in other non-institutional residence as the place of occurrence of the external cause; Y99.8 Other external cause status; Z68.31 Body mass index [BMI] 31.0-31.9, adult
CPT/HCPCS: 36415; 36569; 50432; 71045; 76770; 76937; 77001; 80048; 80076; 80305; 82140; 82270; 82607; 82728; 82746; 83540; 83550; 83605; 84134; 84145; 84484; 85007; 85027; 85384; 86850; 86900; 86920; 87077; 87186; 93005; 96365; 96366; 96375; 97162; 97164; 99285; A6261; C1725; C1729; C1769; C1893; J0692; J0696; J1885; J1940; J2185; J2270; J3010; J3490; J7030; J7040; J7050; J7060; P9016; Q9967; A4315